=== PATIENT | female | born 1985 | race Caucasian/White ===

== ENCOUNTER 2018-01-07 09:32 | Outpatient (CLI) | payer OTHER ==
[~2018-01-07 09:32] MED LIST: Gadobenate Dimeglumine 529 MG/1 ML (20ML VIAL) ONE
== END 2018-01-07 09:33 | disposition home or self-care (01) ==
LOC: BICMRI 09:32
PROVIDERS: ATTEND Student in an Organized Health Care Education/Training Program
DX: R20.2 Paresthesia of skin (principal); H53.9 Unspecified visual disturbance; M62.81 Muscle weakness (generalized); R29.898 Other symptoms and signs involving the musculoskeletal system; M47.892 Other spondylosis, cervical region
CPT/HCPCS: 70553; 72156; A9579

== ENCOUNTER 2020-10-08 08:26 | Outpatient (CLI) | payer OTHER ==
--- NOTE | 2020-10-08 09:07 | CT ---
CT BRAIN NONCONTRAST: DATE: 10/08/2020 HISTORY: 35-year-old female with dizziness and blurred vision FINDINGS: There is no evidence of acute intra-axial or extra-axial hemorrhage. There is no midline shift or any other mass effect. There is no extra-axial fluid collection. There is no evidence of obstructive hydrocephalus. Calvarium is intact. IMPRESSION: No acute intracranial findings.
== END 2020-10-08 08:27 | disposition home or self-care (01) ==
LOC: BICCT 08:26
PROVIDERS: ATTEND Family Medicine
DX: H53.8 Other visual disturbances (principal); R42 Dizziness and giddiness
CPT/HCPCS: 70450